=== PATIENT | female | born 1965 | race Caucasian/White ===

== ENCOUNTER 2022-07-30 20:16 | Emergency (ER) | payer OTHER, SELFPAY ==
[2022-07-30 20:36] VITALS: BP 151/81; PULSE 72; RESP 20; TEMP 37.1; O2SAT 99; BMI 19.5
--- NOTE | 2022-07-30 20:36 | ED.GENADULT ---
HPI - General Adult General Chief complaint: Extremity Problem Stated complaint: Blood Clot in R arm? In pain Time Seen by Provider: 07/30/22 23:09 Related Data Allergies Allergy/AdvReac Type Severity Reaction Status Date / Time morphine [MORPHINE] Allergy Unknown VOMITING Unverified 03/17/20 15:41 [facility] Social History Social History Advance Directives: No Physical Exam ED Vital Signs: BMI result Body Mass Index 19.5 Course Course Course Narrative: This is a rapid medical exam. deferred additional HPI, ROS, PE to primary provider. 56 yo female with past medical history of migraines, chronic neck condition here with complaints of right arm pain/aching today, had pinching injury to middle finger on Saturday. Patient concerned that there is discoloration to the hand/numbness and tingling as well. There is some erythema to the right dorsal aspect of the right hand which is not circumferential. VSS Discharge Plan Discharge Clinical Impression: Arm pain Patient Disposition: Left Without Being Seen Interventions: LWBS Worksheet Last Done: 07/31/22 03:16 Discharge Date/Time: 07/31/22 03:17
== END 2022-07-31 03:17 | disposition left against medical advice (07) ==
PROVIDERS: Emergency Provider Emergency Medicine Emergency Medical Services; PCP Internal Medicine
DX: M79.601 Pain in right arm (principal); M79.602 Pain in left arm
CPT/HCPCS: 99281